=== PATIENT | female | born 1980 | race Caucasian/White ===

== ENCOUNTER → 2016-05-25 | Outpatient (CLI) | payer SELFPAY | LOC: BHSO 08:59 | DX: F90.0 Attention-deficit hyperactivity disorder, predominantly inattentive type (principal) ==

== ENCOUNTER → 2016-07-21 | Outpatient (CLI) | payer SELFPAY | LOC: BHSO 15:33 | DX: F90.0 Attention-deficit hyperactivity disorder, predominantly inattentive type (principal) ==

== ENCOUNTER → 2016-10-27 | Outpatient (CLI) | payer SELFPAY | LOC: BHSO 15:41 | DX: F90.0 Attention-deficit hyperactivity disorder, predominantly inattentive type (principal) ==

== ENCOUNTER → 2017-02-01 | Outpatient (CLI) | payer SELFPAY | LOC: BHSO 15:37 | DX: F90.0 Attention-deficit hyperactivity disorder, predominantly inattentive type (principal) ==

== ENCOUNTER → 2017-09-28 | Outpatient (CLI) | payer BC | LOC: BHSO 16:28 | DX: F90.0 Attention-deficit hyperactivity disorder, predominantly inattentive type (principal) | CPT/HCPCS: G0463 ==

== ENCOUNTER → 2018-05-05 | Outpatient (CLI) | payer BC | LOC: BHSO 16:04 | DX: F90.0 Attention-deficit hyperactivity disorder, predominantly inattentive type (principal) | CPT/HCPCS: G0463 ==

== ENCOUNTER → 2018-07-07 | Outpatient (CLI) | payer BC | LOC: BHSO 16:26 | DX: F90.0 Attention-deficit hyperactivity disorder, predominantly inattentive type (principal) | CPT/HCPCS: G0463 ==

== ENCOUNTER → 2018-10-05 | Outpatient (CLI) | payer BC | LOC: BHSO 16:16 | DX: F90.0 Attention-deficit hyperactivity disorder, predominantly inattentive type (principal) | CPT/HCPCS: G0463 ==

== ENCOUNTER → 2018-12-06 | Outpatient (CLI) | payer BC | LOC: MC.RAD 13:00 | DX: N60.11 Diffuse cystic mastopathy of right breast (principal) | CPT/HCPCS: G0279 ==

== ENCOUNTER → 2019-11-17 | Outpatient (CLI) | payer OTHER | LOC: COL.RAD 16:49 | DX: M25.561 Pain in right knee (principal) ==

== ENCOUNTER → 2020-06-14 | Outpatient (CLI) | payer OTHER | LOC: COL.RAD 07:30 | DX: R10.31 Right lower quadrant pain (principal); R10.2 Pelvic and perineal pain ==

== ENCOUNTER → 2021-05-15 | Outpatient (CLI) | payer OTHER | LOC: MC.RAD 14:00 | DX: N64.52 Nipple discharge (principal) ==

== ENCOUNTER → 2021-06-11 | Outpatient (CLI) | payer OTHER ==
[2021-06-11 09:36] LABS: CALCIUM 9.3 mg/dL (8.4-10.2); CREATININE, serum 0.83 mg/dL (0.57-1.11); POTASSIUM 4.2 mmol/L (3.5-4.5)
[2021-06-11 10:28] LABS: THYROID STIMULATING HORMONE 1.156 uIU/mL (0.350-4.940)
[2021-06-11 10:29] LABS: PROLACTIN 327.6 ng/mL (5.18-26.53)
[2021-06-11 16:20] LABS: CORTISOL, AM (0800) 18 ug/dL (3-20); FOLLICLE STIMULATING HORMONE 0.1 mIU/mL (())
== END ==
LOC: COL.LAB 08:16
DX: E23.7 Disorder of pituitary gland, unspecified (principal)